=== PATIENT | male | born 1955 | race Caucasian/White ===

== ENCOUNTER 2020-06-28 11:31 | Outpatient (REF) | payer MEDICARE, SELFPAY ==
[2020-06-28 21:26] LABS: Calculated LDL 91 mg/dL (<100); Cholesterol 164 mg/dL (<200); HDL Cholesterol 34 mg/dL (40-60); Triglyceride 199 mg/dL (<150)
[2020-06-28 21:28] LABS: Hemoglobin A1C 5.8 % (3.8-5.6)
[2020-06-30 08:45] LABS: PSA, Screening 51.5 ng/mL (0.0-4.5)
== END 2020-06-28 11:51 ==
LOC: NCHCN 11:31
PROVIDERS: PCP Internal Medicine; Visit Provider Internal Medicine
DX: R73.9 Hyperglycemia, unspecified (principal); Z13.6 Encounter for screening for cardiovascular disorders; Z12.5 Encounter for screening for malignant neoplasm of prostate; M25.512 Pain in left shoulder
CPT/HCPCS: 80061; 84153; 83036

== ENCOUNTER 2021-06-24 10:35 | Outpatient (REF) | payer MEDICARE, SELFPAY ==
[2021-06-24 15:06] LABS: Anion Gap 4.7 mmol/L (3-11); BUN 19 mg/dL (7-18); CO2 26.3 mmol/L (21.0-32.0); CREATININE 1.2 mg/dL (0.70-1.30); Calculated LDL 138 mg/dL (<100); Chloride 107 mmol/L (98-107); Cholesterol 204 mg/dL (<200); Glucose 91 mg/dL (74-106); HDL Cholesterol 41 mg/dL (40-60); Potassium 3.8 mmol/L (3.5-5.1); Sodium 138 mmol/L (136-145); Triglyceride 126 mg/dL (<150)
== END 2021-06-24 10:36 | disposition home or self-care (01) ==
LOC: NCHCN 10:35
PROVIDERS: PCP Internal Medicine; Visit Provider Internal Medicine
DX: R73.03 Prediabetes (principal); E78.89 Other lipoprotein metabolism disorders
CPT/HCPCS: 80048; 80061; 83036

== ENCOUNTER 2021-12-21 09:20 | Outpatient (REF) | payer MEDICARE, SELFPAY ==
[2021-12-21 14:54] LABS: Calculated LDL 130 mg/dL (<100); Cholesterol 202 mg/dL (<200); HDL Cholesterol 41 mg/dL (40-60); Hemoglobin A1C 5.8 % (<5.7); Triglyceride 157 mg/dL (<150)
== END 2021-12-21 09:21 | disposition home or self-care (01) ==
LOC: NCHCN 09:20
PROVIDERS: PCP Internal Medicine; Visit Provider Internal Medicine
DX: E78.5 Hyperlipidemia, unspecified (principal); R73.03 Prediabetes
CPT/HCPCS: 80061; 83036

== ENCOUNTER 2022-09-21 18:25 | Outpatient (REF) | payer MEDICARE, SELFPAY ==
[2022-09-21 15:02] LABS: Hemoglobin A1C 5.9 % (<5.7)
[2022-09-21 15:06] LABS: ALT 28 U/L (16-63); AST 55 U/L (15-37); Albumin 3.8 g/dL (3.4-5.0); Alkaline Phosphatase 99 U/L (46-116); Anion Gap 5.9 mmol/L (3-11); BUN 22 mg/dL (7-18); Bilirubin, Total 0.9 mg/dL (0.2-1.0); CO2 26.1 mmol/L (21.0-32.0); CREATININE 1.1 mg/dL (0.70-1.30); Calcium 8.5 mg/dL (8.5-10.1); Calculated LDL 64 mg/dL (<100); Chloride 104 mmol/L (98-107); Cholesterol 136 mg/dL (<200); Estimated GFR 73.12 (mL/min/1.73m2); Glucose 99 mg/dL (74-106); HDL Cholesterol 35 mg/dL (40-60); Potassium 4.1 mmol/L (3.5-5.1); Sodium 136 mmol/L (136-145); Total Protein 7.4 g/dL (6.4-8.2); Triglyceride 189 mg/dL (<150)
== END 2022-09-21 18:26 | disposition home or self-care (01) ==
LOC: NCHCN 18:25
PROVIDERS: PCP Internal Medicine; Visit Provider Internal Medicine
DX: E78.5 Hyperlipidemia, unspecified (principal); R73.03 Prediabetes
CPT/HCPCS: 80053; 80061; 83036

== ENCOUNTER 2022-09-28 16:45 | Outpatient (REF) | payer MEDICARE, SELFPAY ==
[2022-09-28 22:01] LABS: Ferritin 48 ng/mL (26-388)
[2022-09-28 22:13] LABS: Iron 115 ug/dL (65-175); Total Iron Binding Capacity 348 ug/dL (250-450); Transferrin Sat 33 % (20-55)
[2022-10-02 11:03] LABS: Hepatitis A Antibody IgM Negative (Negative); Hepatitis B Core Antibody Negative (Negative); Hepatitis B surface Ag Negative (Negative); Hepatitis C Ab w Rflx HCV PCR Negative (Negative)
== END 2022-09-28 16:46 | disposition home or self-care (01) ==
LOC: NCHCN 16:45
PROVIDERS: PCP Internal Medicine; Visit Provider Internal Medicine
DX: R74.01 Elevation of levels of liver transaminase levels (principal)
CPT/HCPCS: 86704; 86709; 86803; 87340; 82728; 83540; 83550

== ENCOUNTER 2022-12-01 21:05 | Outpatient (REF) | payer MEDICARE, SELFPAY ==
[2022-12-04 10:27] LABS: IgG 1308 mg/dL (610-1616)
[2022-12-04 14:01] LABS: ANA Interpretation Negative (Negative)
[2022-12-05 15:51] LABS: Sm (Smith) Ab, IgG 2.8 Units (<20.0)
[2022-12-05 18:45] LABS: Liver/Kidney Microsome Type 1 <5.0 U
== END 2022-12-01 21:06 | disposition home or self-care (01) ==
LOC: NCHCN 21:05
PROVIDERS: PCP Internal Medicine; Visit Provider Internal Medicine
DX: R74.01 Elevation of levels of liver transaminase levels (principal)
CPT/HCPCS: 82784; 86038; 86235; 86255

== ENCOUNTER 2023-02-02 16:41 | Outpatient (REF) | payer MEDICARE, SELFPAY ==
[2023-02-02 21:12] LABS: Absolute Basophil Count 0.01 10^3/uL (0.0-0.2); Absolute Eosinophil Count 0.05 10^3/uL (0.0-0.7); Absolute Lymphocyte Count 0.88 10^3/uL (1.2-3.4); Absolute Monocyte Count 0.49 10^3/uL (0.1-0.8); Absolute Neutrophil Count 2.16 10^3/uL (1.2-6.7); Basophils % 0.3; Eosinophils % 1.4; HCT 34.9 % (40.0-50.0); HGB 12.2 g/dL (13.5-17.5); Lymphocytes % 24.5; MCH 30.7 pg (27.0-33.0); MCV 88 fL (80-95); MPV 9.8 fL (8.0-11.0); Monocytes % 13.6; Neutrophils % 60.2; Platelet Count 134 10^3/uL (130-400); RBC 3.98 10^6/uL (4.36-5.78); RDW 11.9 % (11.8-14.1); RDW-SD 38.6 fL; WBC 3.59 10^3/uL (4.4-10.8)
[2023-02-02 21:17] LABS: ESR 12 mm/hr (0-20)
[2023-02-02 21:36] LABS: ALT 39 U/L (16-63); AST 48 U/L (15-37); Albumin 3.7 g/dL (3.4-5.0); Alkaline Phosphatase 81 U/L (46-116); Anion Gap 7.9 mmol/L (3-11); BUN 15 mg/dL (7-18); Bilirubin, Total 1.4 mg/dL (0.2-1.0); CO2 25.1 mmol/L (21.0-32.0); CREATININE 0.8 mg/dL (0.70-1.30); Calcium 9.3 mg/dL (8.5-10.1); Chloride 107 mmol/L (98-107); Glucose 102 mg/dL (74-106); Potassium 3.9 mmol/L (3.5-5.1); Sodium 140 mmol/L (136-145); TSH (W/Ref FT4) < 0.01 uIU/mL (0.36-3.74)
[2023-02-02 21:38] LABS: Hemoglobin A1C 5.7 % (<5.7)
== END 2023-02-02 16:42 | disposition home or self-care (01) ==
LOC: NCHCN 16:41
PROVIDERS: PCP Internal Medicine; Visit Provider Family Medicine
DX: R63.4 Abnormal weight loss (principal); R74.01 Elevation of levels of liver transaminase levels; R79.89 Other specified abnormal findings of blood chemistry
CPT/HCPCS: 80053; 85652; 83036; 84439; 84443; 85025; 86140

== ENCOUNTER 2023-03-05 11:31 | Outpatient (REF) | payer MEDICARE, SELFPAY ==
[2023-03-05 15:24] LABS: TSH < 0.01 uIU/mL (0.36-3.74)
[2023-03-06 01:19] LABS: PSA, Diagnostic 0.1 ng/mL (<=4.5)
[2023-03-07 14:59] LABS: FREE T4 1.78 ng/dL (0.76-1.46)
== END 2023-03-05 11:32 | disposition home or self-care (01) ==
LOC: NCHCN 11:31
PROVIDERS: Family Medicine; PCP Internal Medicine; Visit Provider Internal Medicine
DX: E05.90 Thyrotoxicosis, unspecified without thyrotoxic crisis or storm (principal); C61 Malignant neoplasm of prostate
CPT/HCPCS: 84153; 84439; 84443

== ENCOUNTER 2023-04-11 10:31 | Outpatient (REF) | payer MEDICARE, SELFPAY ==
[2023-04-11 16:06] LABS: FREE T4 1.33 ng/dL (0.76-1.46)
[2023-04-11 16:07] LABS: TSH < 0.01 uIU/mL (0.36-3.74)
[2023-04-11 22:38] LABS: T3, Total 223 ng/dL (97-169)
[2023-04-19 18:33] LABS: Thyroid Stimulating Immunoglob 3.4 TSI index (<=1.3)
== END 2023-04-11 10:32 | disposition home or self-care (01) ==
LOC: NCHCN 10:31
PROVIDERS: Internal Medicine Endocrinology, Diabetes & Metabolism; PCP Internal Medicine; Visit Provider Internal Medicine
DX: E05.90 Thyrotoxicosis, unspecified without thyrotoxic crisis or storm (principal)
CPT/HCPCS: 84439; 84443; 84445; 84480

== ENCOUNTER 2023-06-29 10:12 | Outpatient (REF) | payer MEDICARE, SELFPAY ==
[2023-06-29 16:21] LABS: Hemoglobin A1C 5.5 % (<5.7)
[2023-06-29 16:33] LABS: ALT 31 U/L (16-63); AST 43 U/L (15-37); Albumin 3.9 g/dL (3.4-5.0); Alkaline Phosphatase 114 U/L (46-116); Anion Gap 10.6 mmol/L (3-11); BUN 17 mg/dL (7-18); Bilirubin, Total 1.5 mg/dL (0.2-1.0); CO2 25.4 mmol/L (21.0-32.0); Calcium 9.1 mg/dL (8.5-10.1); Chloride 106 mmol/L (98-107); Estimated GFR 81.98 (mL/min/1.73m2); Glucose 111 mg/dL (74-106); Sodium 142 mmol/L (136-145); Total Protein 7.5 g/dL (6.4-8.2)
[2023-06-29 16:37] LABS: FREE T4 0.97 ng/dL (0.76-1.46)
[2023-06-29 16:40] LABS: TSH < 0.01 uIU/mL (0.36-3.74)
[2023-06-29 22:20] LABS: T3, Total 172 ng/dL (97-169)
== END 2023-06-29 10:13 | disposition home or self-care (01) ==
LOC: NCHCN 10:12
PROVIDERS: Internal Medicine Endocrinology, Diabetes & Metabolism; PCP Internal Medicine; Visit Provider Internal Medicine
DX: R73.03 Prediabetes (principal); E07.9 Disorder of thyroid, unspecified
CPT/HCPCS: 80053; 83036; 84439; 84443; 84480

== ENCOUNTER 2023-07-30 17:11 | Outpatient (REF) | payer MEDICARE, SELFPAY ==
[2023-07-30 21:42] LABS: Abs Immature Grans 0.01 10^3/uL (0.0-0.06); Absolute Basophil Count 0.04 10^3/uL (0.0-0.2); Absolute Eosinophil Count 0.06 10^3/uL (0.0-0.7); Absolute Lymphocyte Count 1.59 10^3/uL (1.2-3.4); Absolute Monocyte Count 0.42 10^3/uL (0.1-0.8); Absolute Neutrophil Count 3.19 10^3/uL (1.2-6.7); Basophils % 0.8; Eosinophils % 1.1; HCT 39.4 % (40.0-50.0); HGB 14.2 g/dL (13.5-17.5); Immature Grans % 0.2; Lymphocytes % 29.9; MCH 31.9 pg (27.0-33.0); MCV 89 fL (80-95); MPV 9.8 fL (8.0-11.0); Monocytes % 7.9; Neutrophils % 60.1; Platelet Count 134 10^3/uL (130-400); RBC 4.45 10^6/uL (4.36-5.78); RDW 13.8 % (11.8-14.1); RDW-SD 44.8 fL; WBC 5.31 10^3/uL (4.4-10.8)
[2023-07-30 22:20] LABS: ALT 35 U/L (16-63); AST 56 U/L (15-37); Albumin 4.1 g/dL (3.4-5.0); Alkaline Phosphatase 131 U/L (46-116); Bilirubin, Direct 0.2 mg/dL (0.0-0.2); Bilirubin, Total 1.1 mg/dL (0.2-1.0); FREE T4 0.79 ng/dL (0.76-1.46); TSH 0.02 uIU/mL (0.36-3.74); Total Protein 7.4 g/dL (6.4-8.2)
[2023-07-31 18:09] LABS: T3,Free 3.6 pg/mL (2.8-5.3)
[2023-07-31 18:26] LABS: T3, Total 149 ng/dL (97-169)
== END 2023-07-30 17:12 | disposition home or self-care (01) ==
LOC: LBN 17:11
PROVIDERS: PCP Internal Medicine; Visit Provider Internal Medicine Endocrinology, Diabetes & Metabolism
DX: E05.90 Thyrotoxicosis, unspecified without thyrotoxic crisis or storm (principal); Z79.899 Other long term (current) drug therapy
CPT/HCPCS: 80076; 84439; 84443; 84480; 84481; 85025

== ENCOUNTER 2023-09-21 10:14 | Outpatient (REF) | payer MEDICARE, SELFPAY ==
[2023-09-21 16:07] LABS: FREE T4 0.71 ng/dL (0.76-1.46); TSH 10.33 uIU/mL (0.36-3.74)
[2023-09-21 22:19] LABS: T3,Free 3.8 pg/mL (2.8-5.3)
== END 2023-09-21 10:15 | disposition home or self-care (01) ==
LOC: LBN 10:14
PROVIDERS: PCP Internal Medicine; Visit Provider Internal Medicine Endocrinology, Diabetes & Metabolism
DX: E05.00 Thyrotoxicosis with diffuse goiter without thyrotoxic crisis or storm (principal)
CPT/HCPCS: 84439; 84443; 84481

== ENCOUNTER 2023-11-14 16:14 | Outpatient (REF) | payer MEDICARE, SELFPAY ==
[2023-11-14 21:00] LABS: HCT 38.7 % (40.0-50.0); HGB 13.9 g/dL (13.5-17.5); MCH 32.5 pg (27.0-33.0); MCHC 35.9 % (32.0-36.0); MCV 90 fL (80-95); MPV 9.1 fL (8.0-11.0); Platelet Count 132 10^3/uL (130-400); RBC 4.28 10^6/uL (4.36-5.78); RDW 13.2 % (11.8-14.1); RDW-SD 43.3 fL
[2023-11-14 21:23] LABS: ALT 36 U/L (16-63); AST 60 U/L (15-37); Albumin 3.9 g/dL (3.4-5.0); Alkaline Phosphatase 96 U/L (46-116); Anion Gap 9.3 mmol/L (3-11); BUN 15 mg/dL (7-18); CO2 25.7 mmol/L (21.0-32.0); CREATININE 1.1 mg/dL (0.70-1.30); Calcium 8.8 mg/dL (8.5-10.1); Chloride 102 mmol/L (98-107); Estimated GFR 72.67 (mL/min/1.73m2); FREE T4 0.88 ng/dL (0.76-1.46); Glucose 109 mg/dL (74-106); Potassium 3.9 mmol/L (3.5-5.1); Sodium 137 mmol/L (136-145); TSH 3.88 uIU/mL (0.36-3.74); Total Protein 7.7 g/dL (6.4-8.2)
[2023-11-16 10:46] LABS: Lyme Ab w Rflx to Lyme Confirm Negative (Negative)
[2023-11-18 01:35] LABS: Anaplasma phagocytophilum Negative (Negative); B. miyamotoi PCR Negative (Negative); Babesia divergens/MO-1 Negative (Negative); Babesia duncani Negative (Negative); Babesia microti Negative (Negative); Ehrlichia chaffeensis Negative (Negative); Ehrlichia ewingii/canis Negative (Negative); Ehrlichia muris eauclairensis Negative (Negative)
== END 2023-11-14 16:15 | disposition home or self-care (01) ==
LOC: NCHCN 16:14
PROVIDERS: PCP Internal Medicine; Visit Provider Internal Medicine
DX: E05.00 Thyrotoxicosis with diffuse goiter without thyrotoxic crisis or storm (principal)
CPT/HCPCS: 80053; 85027; 87798; 84439; 84443; 86618

== ENCOUNTER 2023-11-16 11:40 | Outpatient (REF) | payer MEDICARE, SELFPAY ==
[2023-11-19 08:51] LABS: PSA, Diagnostic 0.2 ng/mL (<=4.5)
== END 2023-11-16 11:41 | disposition home or self-care (01) ==
LOC: LBN 11:40
PROVIDERS: PCP Internal Medicine; Visit Provider Urology
DX: C61 Malignant neoplasm of prostate (principal)
CPT/HCPCS: 84153

== ENCOUNTER 2024-01-17 21:01 | Outpatient (REF) | payer MEDICARE, SELFPAY ==
[2024-01-17 21:22] LABS: FREE T4 1.07 ng/dL (0.76-1.46); TSH 0.58 uIU/Ml (0.36-3.74)
[2024-01-18 18:03] LABS: T3,Free 3.8 pg/mL (2.8-5.3)
[2024-01-22 16:32] LABS: Thyroid Stimulating Immunoglob <1.0 TSI index (<=1.3)
== END 2024-01-17 21:02 | disposition home or self-care (01) ==
LOC: NCHCN 21:01
PROVIDERS: PCP Internal Medicine; Visit Provider Internal Medicine Endocrinology, Diabetes & Metabolism
DX: E05.90 Thyrotoxicosis, unspecified without thyrotoxic crisis or storm (principal)
CPT/HCPCS: 84439; 84443; 84445; 84481

== ENCOUNTER 2024-04-03 14:46 | Outpatient (REF) | payer MEDICARE, SELFPAY ==
[2024-04-04 19:35] LABS: PSA, Diagnostic 0.3 ng/mL (<=4.5)
== END 2024-04-03 14:47 | disposition home or self-care (01) ==
LOC: NCHCN 14:46
PROVIDERS: PCP Internal Medicine; Visit Provider Internal Medicine
DX: C61 Malignant neoplasm of prostate (principal)
CPT/HCPCS: 84153

== ENCOUNTER 2024-05-19 18:32 | Outpatient (REF) | payer MEDICARE, SELFPAY ==
[2024-05-19 23:57] LABS: FREE T4 1.21 ng/dL (0.76-1.46); TSH 0.05 uIU/Ml (0.36-3.74)
[2024-05-20 22:21] LABS: T3,Free 4.3 pg/mL (2.8-5.3)
== END 2024-05-19 18:33 | disposition home or self-care (01) ==
LOC: NCHCN 18:32
PROVIDERS: PCP Internal Medicine; Visit Provider Internal Medicine
DX: D61.818 Other pancytopenia (principal); E05.90 Thyrotoxicosis, unspecified without thyrotoxic crisis or storm; E07.89 Other specified disorders of thyroid; Z79.899 Other long term (current) drug therapy
CPT/HCPCS: 84439; 84443; 84481

== ENCOUNTER 2024-10-31 12:57 | Outpatient (REF) | payer MEDICARE, SELFPAY ==
[2024-10-31 15:56] LABS: HCT 40.3 % (40.0-50.0); HGB 14.5 g/dL (13.5-17.5); MCH 32.3 pg (27.0-33.0); MCV 90 fL (80-95); MPV 9.3 fL (8.0-11.0); Platelet Count 124 10^3/uL (130-400); RBC 4.49 10^6/uL (4.36-5.78); RDW-SD 42.6 fL; WBC 4.21 10^3/uL (4.4-10.8)
[2024-10-31 16:16] LABS: Hemoglobin A1C 5.6 % (<5.7)
[2024-10-31 16:32] LABS: ALT 22 U/L (16-63); AST 43 U/L (15-37); Alkaline Phosphatase 95 U/L (46-116); Anion Gap 9.2 mmol/L (3-11); BUN 17 mg/dL (7-18); Bilirubin, Total 0.94 mg/dL (0.2-1.0); CO2 26.8 mmol/L (21.0-32.0); CREATININE 1.1 mg/dL (0.70-1.30); Calcium 8.8 mg/dL (8.5-10.1); Calculated LDL 117 mg/dL (<100); Chloride 106 mmol/L (98-107); Cholesterol 186 mg/dL (<200); Estimated GFR 72.22 (mL/min/1.73m2); Glucose 96 mg/dL (74-106); HDL Cholesterol 39 mg/dL (40-60); Sodium 142 mmol/L (136-145); Total Protein 7.6 g/dL (6.4-8.2); Triglyceride 152 mg/dL (<150); Vitamin D 25 Total 50.2 ng/mL (30-100)
== END 2024-10-31 12:58 | disposition home or self-care (01) ==
LOC: NCHCN 12:57
PROVIDERS: PCP Internal Medicine; Visit Provider Internal Medicine
DX: E78.5 Hyperlipidemia, unspecified (principal); R73.03 Prediabetes
CPT/HCPCS: 80053; 80061; 82306; 85027; 83036